=== PATIENT | female | born 1985 ===

== ENCOUNTER 2016-09-29 22:47 | Emergency (ER) | payer OTHER ==
[2016-09-29] MEDS ORDERED: MAALOX/LIDO2%VISC/SIMETHICONE 40 ML BOT ONE (23:16)
== END 2016-09-30 01:10 | disposition home or self-care (01) ==
LOC: ED 22:47
DX: K08.89 Other specified disorders of teeth and supporting structures (principal); K29.70 Gastritis, unspecified, without bleeding
CPT/HCPCS: 99283 ×2; 64400 ×2; A9270